=== PATIENT | female | born 1970 | race African-American/Black ===

== ENCOUNTER 2023-07-04 14:10 | Emergency (ER) | payer MEDICAID ==
[~2023-07-04] VITALS: Ht 165.1 cm; Wt 81.6 kg
[2023-07-04 14:34] VITALS: BP_SYST 178; PULSE 75; RESP 18; TEMP 98.3; O2SAT 100
[2023-07-04 16:34] VITALS: BP_SYST 145; PULSE 73; RESP 18; TEMP 97.8; O2SAT 97
== END 2023-07-04 16:33 | disposition home or self-care (01) ==
LOC: SED 14:10
DX: I10 Essential (primary) hypertension (principal); Z79.899 Other long term (current) drug therapy
CPT/HCPCS: 99281